=== PATIENT | female | born 1975 | race Caucasian/White ===

== ENCOUNTER → 2019-08-17 | Outpatient (CLI) | payer BC ==
--- NOTE | 2019-08-17 09:19 | WOMENS IMAGING REPORT ---
EXAM DESCRIPTION: BILAT SCREENING MAMMO W/CAD IMAGES COMPLETED DATE/TIME: 08/17/2019 8:50 am REASON FOR STUDY: Z12.31 SCREENING MAMMO Z12.31 ENCNTR SCREEN MAMMOGRAM FOR MALIGNANT NEOPLASM OF B RE COMPARISON: None. EXAM PARAMETERS: Standard craniocaudal and mediolateral oblique views of each breast recorded using digital acquisition. Read with the assistance of CAD. .[facility] - [employer] Worker [employer] Version 9.2 LIMITATIONS: None. FINDINGS: No suspicious masses, suspicious calcifications or architectural distortion. No areas of c oncern. IMPRESSION: NEGATIVE MAMMOGRAM. BIRADS 1 BREAST DENSITY: c. The breasts are heterogeneously dense, which may obscure small masses. BIRAD: ASSESSMENT: 1 NEGATIVE RECOMMENDATION: ROUTINE SCREENING COMMENT: The patient has been notified of the results by letter per MQSA requirements. Additional no tification policies are in place for contacting patient with suspicious or incomplete findings. Quality ID #[id number]: The [employer] recommends an annual screening mammogram for women aged 40 years or over. This facility utilizes a reminder system to ensure that all patients receive reminder letters, and/or direct phone calls for appointments. This includes reminders for routine scr eening mammograms, diagnostic mammograms, or other Breast Imaging Interventions when appropriate. Th is patient will be placed in the appropriate reminder system. TECHNICAL DOCUMENTATION: FINDING NUMBER: (1) ASSESSMENT: (1) JOB ID: [id number] 2010 [email or web address] All Rights Reserved Reading location - IP/workstation name: [email or web address]
== END ==
LOC: WI 08:00
PROVIDERS: ATTEND Family Medicine
DX: Z12.31 Encounter for screening mammogram for malignant neoplasm of breast (principal)
CPT/HCPCS: 77067

== ENCOUNTER 2019-10-29 05:16 | Inpatient (IN) | payer BC ==
--- NOTE | 2019-10-24 10:23 | EKG REPORT ---
SEVERITY:- NORMAL ECG - SINUS RHYTHM : Confirmed by: Maame Hong MD 24-Oct-2019 10:23:31
[2019-10-24 10:53] LABS: HEMATOCRIT 37.3 % (36.0-47.0); HEMOGLOBIN 12.2 g/dL (12.0-15.5); MEAN CORPUSCULAR HEMOGLOBIN 27.7 pg (27.0-33.4); MEAN CORPUSCULAR HGB CONC 32.8 g/dL (32.0-36.0); MEAN CORPUSCULAR VOLUME 84 fl (80-97); PLATELET COUNT 286 10^3/uL (150-450); RED BLOOD COUNT 4.42 10^6/uL (3.72-5.28); WHITE BLOOD COUNT 6.5 10^3/uL (4.0-10.5)
[2019-10-24 11:10] LABS: APPEARANCE,URINE SLIGHTLY-CLOUDY; BILIRUBIN,URINE NEGATIVE (NEGATIVE); COLOR,URINE YELLOW; GLUCOSE, URINE NEGATIVE (NEGATIVE); KETONES,URINE NEGATIVE (NEGATIVE); LEUKOCYTE ESTERASE,URINE NEGATIVE (NEGATIVE); NITRITE,URINE NEGATIVE (NEGATIVE); PROTEIN,URINE NEGATIVE (NEGATIVE); URINE SPECIFIC GRAVITY 1.015; UROBILINOGEN,URINE NEGATIVE mg/dL (<2.0)
[2019-10-24 11:21] LABS: ANION GAP 9 (5-19); BLOOD UREA NITROGEN 12 mg/dL (7-20); CALCIUM 8.9 mg/dL (8.4-10.2); CARBON DIOXIDE 25 mmol/L (22-30); CHLORIDE 103 mmol/L (98-107); GLUCOSE 108 mg/dL (75-110); POTASSIUM 4.6 mmol/L (3.6-5.0)
[~2019-10-29 05:16] MED LIST: CEFAZOLIN 1 GM/D5W RTU 1 GM/50 ML RTUPB IV PRN; LACTATED RINGERS 1000 ML IV PRN; LIDOCAINE 0.5% INJ-PF (5 MG/ML) 50 ML SDV SUBCUT PRN
[2019-10-29] MEDS ORDERED: CEFAZOLIN 1 GM/D5W RTU 1 GM/50 ML RTUPB IV ONE (05:17)
[2019-10-29] MEDS ORDERED: KETOROLAC TROMETHAMINE 60 MG/2 ML SDV ONE (06:53)
[2019-10-29] MEDS ORDERED: PROPOFOL INJ 200 MG/20 ML VIAL IV ONE (06:53)
[2019-10-29] MEDS ORDERED: FENTANYL CITRATE INJ/PF 100 MCG/2 ML AMPUL ONE (06:53)
[2019-10-29] MEDS ORDERED: MIDAZOLAM 2 MG/2 ML INJ ONE (06:53)
[2019-10-29] MEDS ORDERED: ONDANSETRON HCL INJ/PF 4 MG/2 ML SDV ONE ×2 (06:53→10:53)
[2019-10-29] MEDS ORDERED: HYDROMORPHONE HCL INJ/PF 2 MG/ML AMPULE ONE (06:53)
[2019-10-29] MEDS ORDERED: BUPIVACAINE INJ/PF LIPOSOME/PF 266 MG/20 ML SDV ONE (07:10)
--- NOTE | 2019-10-29 07:13 | RADIOLOGY REPORT (SQ) ---
EXAM: XR Chest, 2 Views EXAM DATE/TIME: 10/29/2019 7:10 AM CLINICAL HISTORY: The patient is 44 years old and is Female; pre-op hysterectomy TECHNIQUE: Frontal and lateral views of the chest. COMPARISON: Chest radiograph from 02/09/2017 FINDINGS: LUNGS: Unremarkable. No consolidation. PLEURAL SPACE: Unremarkable. No pneumothorax. HEART: No significant enlargement of the cardiac silhouette. MEDIASTINUM: Unremarkable. BONES/JOINTS: No acute osseous findings. IMPRESSION: No acute findings visualized in the chest.
[2019-10-29] MEDS ORDERED: DIPHENHYDRAMINE HCL 50 MG/ML VIAL IV PRN (08:05)
[2019-10-29] MEDS ORDERED: OXYCODONE-ACETAMINOPHEN 5-325 MG TABLET PO PRN ×3 (08:05→10:00)
[2019-10-29] MEDS ORDERED: MEPERIDINE HCL/PF INJ 25 MG/1 ML DISP.SYRIN IV PRN (08:05)
[2019-10-29] MEDS ORDERED: FENTANYL CITRATE INJ/PF 100 MCG/2 ML AMPUL IV PRN ×3 (08:05)
[2019-10-29] MEDS ORDERED: PROMETHAZINE HCL INJ 25 MG/1 ML VIAL IV PRN ×2 (08:05)
[2019-10-29] MEDS ORDERED: ONDANSETRON HCL INJ/PF 4 MG/2 ML SDV IV PRN ×2 (08:05→10:56)
--- NOTE | 2019-10-29 09:01 | Operative Report ---
Operative Report DATE OF SURGERY: 10/29/19 PREOPERATIVE DIAGNOSIS: Uterine leiomyoma POSTOPERATIVE DIAGNOSIS: Same plus family history of ovarian carcinoma OPERATION: Supracervical hysterectomy and bilateral salpingo-oophorectomy ANESTHESIA: GA TISSUE REMOVED OR ALTERED: Uterus tubes ovaries COMPLICATIONS: None ESTIMATED BLOOD LOSS: 50 mL's INTRAOPERATIVE FINDINGS: 18-week size multinodular uterus normal tubes and ovaries normal upper abdomen PROCEDURE: INDICATIONS FOR PROCEDURE: The patient had unreasonable uterine bleeding despite multiple outpatient management. She desired attempt at definitive therapy. The usual risks of bleeding, infection, anesthesia, and damage to organs or tissues was discussed with the patient who understood, and she desires attempt at definitive therapy. PROCEDURE: The patient was taken to the operating room. The patient was placed in modified supine position. Adequate anesthesia was ascertained. She was prepped and draped in the usual manner for a abdominal hysterectomy. EUA was performed after a time out was performed and antibiotics had been given. Bladder was drained under sterile technique. Via Pfannenstiel type incision extending through subcutaneous fat and fascia peritoneum was then without difficulty and uterus examined and brought out the operative field a olga f-retaining retractor was placed and the abdominal contents packed out of the pelvis .The round ligaments were identified bilaterally and intact marked and held. The infundibulopelvic ligaments were crossclamped cauterized and suture- ligated. The bladder was advanced sequentially throughout this aspect of the procedure with LigaSure device used for hemostasis bilaterally. Cautery was continued down to the level of the uterine vessels which were cauterized and secondarily tied as well. The pedicles were noted to be dry. The ovaries were visually normal. The cervix uterus was amputated and cervix examined and oversewn with number chromic catgut in interrupted fashion good hemostasis was noted. The parietal peritoneum noted to be dry the rectus fascia was closed #1 PDS double-stranded suture Exparel used the end of the case skin positive skin nasra completion procedure all sponge and needle counts count correct
[2019-10-29] MEDS: FENTANYL CITRATE INJ/PF 100 MCG/2 ML AMPUL ONE ×2 (09:12→09:23)
[2019-10-29] MEDS ORDERED: HYDROCODONE/ACETAMINOPHEN 7.5-325 MG TABLET PO PRN (09:42)
[2019-10-29] MEDS ORDERED: MORPHINE INJ 8 MG DOSE IM PRN (10:00)
[2019-10-29] MEDS ORDERED: MORPHINE INJ 6 MG DOSE (EDIT ROUTE) INJ PRN (10:00)
[2019-10-29] MEDS ORDERED: PROMETHAZINE HCL INJ 25 MG/1 ML VIAL IM PRN (10:00)
[2019-10-29] MEDS ORDERED: MORPHINE INJ 4 MG DOSE (EDIT ROUTE) INJ PRN (10:00)
[2019-10-29] MEDS: HYDROMORPHONE HCL INJ/PF 2 MG/ML AMPULE IV PRN ×2 (11:23→17:13)
[2019-10-29] MEDS: CEFAZOLIN 1 GM RTU (EDIT START TIME) IV SCH ×2 (11:25→17:13)
[2019-10-29] MEDS ORDERED: SUCCINYLCHOLINE CHLORIDE INJ 200 MG/10 ML VIAL ONE (14:31)
[2019-10-29] MEDS ORDERED: GLYCOPYRROLATE 1 MG/5 ML VIAL ONE (14:31)
[2019-10-29] MEDS ORDERED: PHENYLEPHRINE HCL INJ/PF 10 MG/1 ML SDV ONE (14:31)
[2019-10-29] MEDS ORDERED: VECURONIUM BROMIDE INJ 10 MG VIAL IV ONE (14:31)
[2019-10-29] MEDS ORDERED: NORMAL SALINE INJ/PF 0.9% 10 ML SDV ONE (14:31)
[2019-10-29] MEDS ORDERED: NEOSTIGMINE METHYLSULFATE 10 MG/10 ML VIAL ONE (14:31)
[2019-10-29] MEDS: HYDROCODONE/ACETAMINOPHEN 7.5-325 MG TABLET PO PRN ×2 (15:00→20:06)
[2019-10-29] MEDS: IBUPROFEN 800 MG TABLET PO SCH ×2 (15:03→22:25)
[2019-10-30] MEDS: HYDROCODONE/ACETAMINOPHEN 7.5-325 MG TABLET PO PRN ×2 (01:08→06:50)
[2019-10-30] MEDS: IBUPROFEN 800 MG TABLET PO SCH (05:06)
[2019-10-30 08:10] LABS: HEMATOCRIT 29.9 % (36.0-47.0); HEMOGLOBIN 10.1 g/dL (12.0-15.5); MEAN CORPUSCULAR HEMOGLOBIN 28.2 pg (27.0-33.4); MEAN CORPUSCULAR HGB CONC 33.9 g/dL (32.0-36.0); MEAN CORPUSCULAR VOLUME 83 fl (80-97); PLATELET COUNT 216 10^3/uL (150-450); RED BLOOD COUNT 3.59 10^6/uL (3.72-5.28); RED CELL DISTRIBUTION WIDTH 14.2 % (11.5-14.0); WHITE BLOOD COUNT 7.3 10^3/uL (4.0-10.5)
[2019-10-30 08:35] VITALS: BP 128/73
--- NOTE | 2019-11-27 08:53 | PDOC DISCHARGE SUMMARY ---
Impression - Admit/DC Date/PCP Admission Date/Primary Care Provider: 10/29/19 05:16 DELILAH MAIN DO Discharge Date: 10/30/19 - Additional Information Resuscitation Status: Full Code Discharge Diet: As Tolerated Discharge Activity: Activity As Tolerated, Balance Activity w/Rest, No Lifting Over 10 Pounds, No Lifting/Push/Pulling, Pelvic Rest, No tub bath Referrals: FELICIA DAVE MD [EMERITUS] - 11/06/19 10:00 am (CALL THE OFFICE OF ANY QUESTIONS AND CONCERNS.) DELILAH MAIN DO [Primary Care Provider] - Home Medications: Ibuprofen 800 mg PO TIDP PRN 01/30/16 Multivitamin/Iron/Folic Acid [Centrum Adults Tablet] 1 each PO DAILY 02/03/17 Phentermine HCl 37.5 mg PO DAILY 10/24/19 Medroxyprogesterone Acetate [Provera] 5 mg PO DAILY 10/29/19 History of Present Illiness History of Present Illness: BOBBY TYLER is a 44 year old female Physical Exam - Physical Exam Vital Signs: Temp Pulse Resp BP Pulse Ox 97.9 F 57 L 18 128/73 H 100 10/30/19 08:35 10/30/19 08:35 10/30/19 08:35 10/30/19 08:35 10/30/19 08:35 Results Laboratory Results: WBC 7.3 10^3/uL (4.0-10.5) 10/30/19 07:26 RBC 3.59 10^6/uL (3.72-5.28) L 10/30/19 07:26 Hgb 10.1 g/dL (12.0-15.5) L 10/30/19 07:26 Hct 29.9 % (36.0-47.0) L 10/30/19 07:26 MCV 83 fl (80-97) 10/30/19 07:26 MCH 28.2 pg (27.0-33.4) 10/30/19 07:26 MCHC 33.9 g/dL (32.0-36.0) 10/30/19 07:26 RDW 14.2 % (11.5-14.0) H 10/30/19 07:26 Plt Count 216 10^3/uL (150-450) 10/30/19 07:26 Sodium 137.2 mmol/L (137-145) 10/24/19 09:48 Potassium 4.6 mmol/L (3.6-5.0) 10/24/19 09:48 Chloride 103 mmol/L (98-107) 10/24/19 09:48 Carbon Dioxide 25 mmol/L (22-30) 10/24/19 09:48 Anion Gap 9 (5-19) 10/24/19 09:48 BUN 12 mg/dL (7-20) 10/24/19 09:48 Creatinine 0.50 mg/dL (0.52-1.25) L 10/24/19 09:48 Est GFR ( Amer) > 60 (>60) 10/24/19 09:48 Est GFR (MDRD) Non-Af > 60 (>60) 10/24/19 09:48 Glucose 108 mg/dL (75-110) 10/24/19 09:48 Calcium 8.9 mg/dL (8.4-10.2) 10/24/19 09:48 Urine Color YELLOW 10/24/19 10:05 Urine Appearance SLIGHTLY-CLOUDY 10/24/19 10:05 Urine pH 5.0 (5.0-9.0) 10/24/19 10:05 Ur Specific Deputy 1.015 10/24/19 10:05 Urine Protein NEGATIVE mg/dL (NEGATIVE) 10/24/19 10:05 Urine Glucose (UA) NEGATIVE mg/dL (NEGATIVE) 10/24/19 10:05 Urine Ketones NEGATIVE mg/dL (NEGATIVE) 10/24/19 10:05 Urine Blood MODERATE (NEGATIVE) H 10/24/19 10:05 Urine Nitrite NEGATIVE (NEGATIVE) 10/24/19 10:05 Urine Bilirubin NEGATIVE (NEGATIVE) 10/24/19 10:05 Urine Urobilinogen NEGATIVE mg/dL (<2.0) 10/24/19 10:05 Ur Leukocyte Esterase NEGATIVE (NEGATIVE) 10/24/19 10:05 Urine WBC (Auto) 1 /HPF 10/24/19 10:05 Urine RBC (Auto) 1 /HPF 10/24/19 10:05 Squamous Epi Cells Auto 3 /HPF 10/24/19 10:05 Urine Mucus (Auto) RARE /LPF 10/24/19 10:05 Urine Ascorbic Acid NEGATIVE (NEGATIVE) 10/24/19 10:05 Urine HCG, Qual NEGATIVE (NEGATIVE) 10/29/19 05:15 COVID-19 Source NASOPHARYNGEAL 10/24/19 09:43 COVID-19 (UMM) NOT DETECTED 10/24/19 09:43 Blood Type A POSITIVE 10/24/19 09:48 Antibody Screen NEGATIVE 10/24/19 09:48 Impressions: Chest X-Ray 10/29/19 00:00 IMPRESSION: No acute findings visualized in the chest. Stroke Is this a Stroke Patient?: No Acute Heart Failure Is this a Heart Failure Patient?: No
== END 2019-10-30 09:10 | disposition home or self-care (01) | DRG 743 ==
LOC: INTOOBSV 05:16 → INOR 05:16 → OBSVTOIN 05:16 → 2N 10:05
PROVIDERS: ADMIT Specialist; ATTEND Specialist
PROC: 0UT20ZZ Resection of Bilateral Ovaries, Open Approach (ICD-10-PCS; 2019-10-29)
PROC: 0UT70ZZ Resection of Bilateral Fallopian Tubes, Open Approach (ICD-10-PCS; 2019-10-29)
PROC: 0UT90ZL Resection of Uterus, Supracervical, Open Approach (ICD-10-PCS; principal; 2019-10-29 07:15)
DX: D25.1 Intramural leiomyoma of uterus (principal); Z80.41 Family history of malignant neoplasm of ovary
CPT/HCPCS: 36415; 71046; 80048; 81001; 81025; 840; 85027; 86850; 86900; 86901; 87635; 88307; 93005; 93010; 94799; C1758; C9290; C9803; J0330; J0690; J1170; J1885; J2250; J2370; J2405; J2704; J2710; J3010; J3490; J7120